=== PATIENT | male | born 1980 | race Hispanic/Latino ===

== ENCOUNTER 2016-10-13 19:08 | Emergency (ER) | payer SELFPAY ==
[2016-10-13 19:16] VITALS: BMI 25.5
[2016-10-13 19:24] VITALS: RESP 18; TEMP 98.8
[2016-10-13 20:44] LABS: ADD MANUAL DIFF? NO
[2016-10-13 20:58] LABS: BASO # 0.04 K/mm3 (0.0-2.0); BASO % 0.3 % (0.0-3.0); EOS # 0.1 (0.0-0.7); EOS % 0.7 % (1.5-5.0); GRAN # 10.19 (1.4-6.5); GRAN % 78.7 % (50.0-68.0); HEMATOCRIT 41.7 % (42.0-52.0); LYMPH # 1.7 (1.2-3.4); LYMPH % 13.3 % (22.0-35.0); MEAN CELL VOLUME 83.9 fL (80.0-105.0); MEAN CORPUSCULAR HGB CONC 33.3 g/dl (31.0-37.0); MONO # 0.9 (0.1-0.6); PLATELET COUNT 299 10^3/uL (120.0-450.0); RED CELL DISTRIBUTION WIDTH 13.5 % (11.5-14.5)
[2016-10-13 21:01] LABS: ALB/GLOB RATIO 1.3 (1.1-1.8); ALKALINE PHOSPHATASE 64 U/L (38-133); ALT/SGPT 29 U/L (7-56); AST/SGOT 27 U/L (15-59); BILIRUBIN,TOTAL 0.7 mg/dL (0.2-1.3); BLOOD UREA NITROGEN 30 mg/dL (7-21); CALCIUM 9.7 mg/dL (8.4-10.5); CARBON DIOXIDE 25 mmol/L (21-33); CHLORIDE 101 mmol/L (98-107); GFR AFRICAN-AMERICAN > 60; GLUCOSE,RANDOM 106 mg/dL (70-110); SODIUM 136 mmol/L (132-148); TOTAL PROTEIN 7.9 g/dL (5.8-8.3)
[2016-10-13 21:42] VITALS: BP 142/103; PULSE 102; O2SAT 99
--- NOTE | 2016-10-13 21:48 | ED PDOC ---
Arrival/HPI - General Chief Complaint: Medical Clearance Time Seen by Provider: 10/13/16 19:17 Historian: Patient - History of Present Illness Narrative History of Present Illness (Text): 10/13/16 21:45 36 year old male brought in by [facility] under arrest for medical clearance. Patient states he took Adderall prior to being placed in custody. Denies any physical complaints. He states he has been taking Adderall for years for "ADHD". Time/Duration: Prior to Arrival Symptom Onset: Sudden Symptom Course: Unchanged Modifying Factors (Text): None Associated Symptoms (Text): None Past Medical History - Provider Review Nursing Documentation Reviewed: Yes - Infectious Disease Hx of Infectious Diseases: None - Psychiatric Hx Substance Use: Yes - Anesthesia Hx Anesthesia: No Family/Social History - Physician Review Nursing Documentation Reviewed: Yes Family/Social History: Unknown Family HX Smoking Status: Heavy Smoker > 10 Cigarettes Daily Hx Alcohol Use: No Hx Substance Use: Yes Substance used: Codeine, Adderall Allergies/Home Meds Allergies/Adverse Reactions: Allergies amoxicillin [From Augmentin] Allergy (Verified 10/13/16 19:16) RASH clavulanic acid [From Augmentin] Allergy (Verified 10/13/16 19:16) RASH codeine Allergy (Verified 10/13/16 19:16) DIARRHEA upset stomach Review of Systems - Physician Review All systems were reviewed & negative as marked: Yes - Review of Systems Respiratory: absent: SOB Cardiovascular: absent: Chest Pain Gastrointestinal: absent: Abdominal Pain Physical Exam Vital Signs Reviewed: Yes Vital Signs Temp Pulse Resp BP Pulse Ox 10/13/16 21:41 102 H 18 142/103 H 99 10/13/16 19:23 98.8 F 117 H 18 162/98 H 100 Temperature: Afebrile Blood Pressure: Normal Pulse: Tachycardic Respiratory Rate: Normal Appearance: Positive for: Well-Appearing, Non-Toxic, Comfortable Pain Distress: None Mental Status: Positive for: Alert and Oriented X 3 Medical Decision Making ED Course and Treatment: Impression: 36 year old male brought in by [facility] under arrest for medical clearance Plan: -- Labs -- Reassess and disposition Progress Notes: 10/13/16 21:00 Labs reviewed. On re-evaluation, the patient is in no acute distress. Patient in agreement with plan to discharged. Patient is stable for discharge. Patient medically cleared for incarceration. - Lab Interpretations Lab Results: 10/13/16 20:35 10/13/16 20:35 Lab Results 10/13/16 20:35: Alcohol, Quantitative < 10 10/13/16 20:35: Salicylates < 1 L, Acetaminophen < 10.0 L 10/13/16 20:35: Sodium 136, Potassium 4.0, Chloride 101, Carbon Dioxide 25, Anion Gap 14, BUN 30 H, Creatinine 1.5 H, Est GFR ( Amer) > 60, Est GFR ( Non-Af Amer) 53, Random Glucose 106, Calcium 9.7, Total Bilirubin 0.7, AST 27, ALT 29, Alkaline Phosphatase 64, Total Protein 7.9, Albumin 4.5, Globulin 3.4, Albumin/Globulin Ratio 1.3 10/13/16 20:35: WBC 13.0 H, RBC 4.97, Hgb 13.9 L, Hct 41.7 L, MCV 83.9, MCH 28.0 , MCHC 33.3, RDW 13.5, Plt Count 299, MPV 11.0, Gran % 78.7 H, Lymph % (Auto) 13.3 L, Coffey % (Auto) 7.0 H, Eos % (Auto) 0.7 L, Baso % (Auto) 0.3, Gran # 10.19 H, Lymph # 1.7, Coffey # 0.9 H, Eos # 0.1, Baso # 0.04 - EKG Interpretation EKG Interpretation (Text): EKG shows sinus rhythm at 105 BPM with normal axis, normal intervals, no ST elevations. Interpreted by me. Interpreted by ED Physician: Yes Type: 12 lead EKG - Scribe Statement The provider has reviewed the documentation as recorded by the Rex Robin Provider Scribe Attestation: All medical record entries made by the Rex were at my direction and personally dictated by me. I have reviewed the chart and agree that the record accurately reflects my personal performance of the history, physical exam, medical decision making, and the department course for this patient. I have also personally directed, reviewed, and agree with the discharge instructions and disposition. Disposition/Present on Arrival - Present on Arrival Any Indicators Present on Arrival: No History of DVT/PE: No History of Uncontrolled Diabetes: No Urinary Catheter: No History of Decub. Ulcer: No History Surgical Site Infection Following: None - Disposition Have Diagnosis and Disposition been Completed?: Yes Diagnosis: Medical clearance for incarceration Disposition: HOME/ ROUTINE Disposition Time: 21:00 Condition: GOOD Additional Instructions: Thank you for letting us take care of you today. Your provider was Dr. Lomeli. The emergency medical care you received today was directed at your acute symptoms. If you were prescribed any medication, please fill it and take as directed. It may take several days for your symptoms to resolve. Return to the Emergency Department if your symptoms worsen, do not improve, or if you have any other problems. Please contact your doctor or call one of the physicians/clinics you have been referred to that are listed on the Patient Visit Information form that is included in your discharge packet. Bring any paperwork you were given at discharge with you along with any medications you are taking to your follow up visit. Our treatment cannot replace ongoing medical care by a primary care provider (PCP) outside of the emergency department. Thank you for allowing the [facility] team to be part of your care today. Follow up with your doctor for outpatient care. PATIENT HAS BEEN EXAMINED HERE IN THE EMERGENCY ROOM AND HAS BEEN CLEARED MEDICALLY TO BE RELEASED FROM THE EMERGENCY ROOM IN [employer]. Referrals: [facility], [Non-Staff] - Follow up with primary
--- NOTE | 2016-10-14 13:01 | CARD ---
APPROVED REPORT EKG Measurement Heart [id number] <Conclusion> Sinus tachycardia Possible Left atrial enlargement Borderline ECG
== END 2016-10-13 21:50 | disposition home or self-care (01) ==
LOC: ED 19:08
DX: Z02.89 Encounter for other administrative examinations (principal)
CPT/HCPCS: 80053; 85025; 93005; 99282; G0480